=== PATIENT | female | born 1945 | race Caucasian/White ===

== ENCOUNTER 2017-09-07 16:13 | Emergency (ER) | payer OTHER, MEDICARE ==
[~2017-09-07] VITALS: Ht 170.2 cm; Wt 90.7 kg
[~2017-09-07 16:13] MED LIST: AMLODIPINE BESYL5 M1 PO; ATORVASTATIN CA20 M1 PO; BENICAR HCT 401 EAC1 PO; COZAAR100 M1 PO; OMEPRAZOLE40 M1 PO
--- NOTE | 2017-09-07 17:10 | RADIOLOGY REPORT ---
EXAMINATION: XR KNEE, LEFT CLINICAL INFORMATION: Left knee and left flank pain. COMPARISON: None TECHNIQUE: AP, lateral, and both oblique views of the left knee. FINDINGS: Minimal osteoarthritis of the left knee is characterized by tiny tricompartmental osteophytes as well as subchondral cystic changes in the patella. No fracture or malalignment. No joint effusion. Bones are osteopenic. Soft tissues are unremarkable. IMPRESSION: Minimal tricompartmental osteoarthritis. No acute osseous abnormalities.
--- NOTE | 2017-09-07 17:11 | RADIOLOGY REPORT ---
EXAMINATION: XR CHEST, 2 VIEWS CLINICAL INFORMATION: Left flank pain wrapping around the chest. COMPARISON: 10/08/2016 TECHNIQUE: PA and lateral views of the chest were obtained. FINDINGS: Lungs are clear. No consolidation, pneumothorax, or pleural effusion. Cardiac and mediastinal contours are normal. Pulmonary vasculature is unremarkable. Trachea is midline. Degenerative disc disease again seen in the thoracic spine. Osteophytes is again noted in the acromioclavicular and glenohumeral joints with loose bodies in the right superior subscapularis recess. Prominent subacromial spurs are present bilaterally. IMPRESSION: No acute pulmonary findings.
--- NOTE | 2017-09-07 17:14 | ED GENERAL ADULT ---
History of Present Illness General Chief Complaint: Lower Extremity Problems Stated Complaint: LFT LEG PAIN Source: patient Exam Limitations: no limitations Allergies Coded Allergies: NO KNOWN ALLERGIES (UNKNOWN 10/10/16) Reconcile Medications Amlodipine Besylate 5 MG TABLET 5 MG PO DAILY hypertension . Atorvastatin Calcium 20 MG TABLET 1 TAB PO DAILY CHOLESTEROL (Reported) Lidocaine HCl (Lidocaine HCl Viscous) 2 % SOLUTION 15 ML PO 4 TIMES/DAY PRN THROAT PAIN Losartan (Cozaar) 100 MG TABLET 100 MG PO DAILY hypertension . Omeprazole 40 MG CAPSULE.DR 1 CAP PO DAILY ACID REFLUX (Reported) Triage Note: PT STATES HER LEFT LEG HAD PAIN IN THE BACK OF HER KNEE WHILE GOING TO THE [facility]. Triage Nurses Notes Reviewed? yes Onset: Abrupt Duration: day(s): Timing: single episode today Injury Environment: home Severity: moderate, severe Severity Numbers: 8 No Modifying Factors: none Modifying Factors: Worsens With: movement. LMP (ages 10-50): post menopausal : No HPI: 71-year-old female past medical history of hyperlipidemia hypertension GERD and gastritis presents for evaluation of pain in her left popliteal fossa. This pain is been present for several days and getting worse. The pain is worse with movement. She has taken Aleve for this pain without much improvement. She also reports she has had intermittent pain in her epigastric area and right upper quadrant that wraps around to her right flank and right back. This pain is been present intermittently for about one week. No shortness of breath or chest pain. No hemoptysis no lower extremity edema no coughing. There was no trauma to the knee no redness no swelling. No recent surgery. She's never had a heart attack or some cardiac issues. (Kevyn Kirby) Vital Signs & Intake/Output Vital Signs & Intake/Output Vital Signs Date Time Temp Pulse Resp B/P B/P Pulse O2 O2 Flow FiO2 Mean Ox Delivery Rate 09/07 2024 98.0 62 18 148/74 99 Room Air 09/07 1820 97.6 88 18 152/78 98 Room Air 09/07 1624 97.4 110 18 164/92 97 Room Air ED Intake and Output 09/08 0000 09/07 1200 Intake Total Output Total Balance Patient 200 lb Weight Weight Reported by Patient Measurement Method (Jose Asif) Past History Travel History Traveled to [place] past 21 day No Medical History Any Pertinent Medical History? see below for history Cardiovascular: hypertension, hyperlipidemia Gastrointestinal: GERD, GASTRITIS Surgical History Surgical History: none Psychosocial History What is your primary language Estonian Tobacco Use: Never used ETOH Use: denies use Illicit Drug Use: denies illicit drug use Family History Family History, If Any: BROTHER FH: heart attack, Onset: 60+. Relation not specified for: *No pertinent family history Hx Contributory? No (Kevyn Kirby) Review of Systems Review of Systems Constitutional: Reports: no symptoms. EENTM: Reports: no symptoms. Respiratory: Reports: no symptoms. Cardiovascular: Reports: no symptoms. GI: Reports: see HPI, abdominal pain. Genitourinary: Reports: no symptoms. Musculoskeletal: Reports: see HPI, back pain, joint pain, muscle pain. Skin: Reports: no symptoms. Neurological/Psychological: Reports: no symptoms. Hematologic/Endocrine: Reports: no symptoms. Immunologic/Allergic: Reports: no symptoms. All Other Systems: Reviewed and Negative (Kevyn Kirby) Physical Exam Physical Exam General Appearance: well developed/nourished, no apparent distress, alert, awake Head: atraumatic, normal appearance Eyes: Bilateral: normal appearance, PERRL, EOMI. Ears, Nose, Throat: normal pharynx, normal ENT inspection, hearing grossly normal Neck: normal inspection, supple, full range of motion Respiratory: normal breath sounds, chest non-tender, no respiratory distress, lungs clear Cardiovascular: regular rate/rhythm, normal peripheral pulses Peripheral Pulses: 2+ radial (R), 2+ radial (L) Gastrointestinal: normal bowel sounds, soft, no organomegaly, tenderness ( EPIGASTRIC RUQ) Extremities: normal inspection, normal range of motion, no edema, THERE IS SWELLING AND PAIN TO PALPATION TO THE LEFT POPLITEAL FOSSA. NO ERYTEMA FULL ROM INTACTPATIENT IS ABLE TO WALK AND BEAR WEIGHT. nO [place] TENDERNESS Neurologic/Psych: no motor/sensory deficits, awake, alert, oriented x 3, normal gait Skin: intact, normal color, warm/dry Lymphatic: no anterior cervical derek Core Measures ACS in differential dx? No CVA/TIA Diagnosis: No Sepsis Present: No Sepsis Focused Exam Completed? No (Kevyn Kirby) Progress Differential Diagnoses I considered the following diagnoses in my evaluation of the patient: [ Pancreatitis, GERD, esophagitis, acute coronary syndrome, PE, aortic dissection] Diagnostic Imaging: Viewed by Me: Radiology Read, CT Scan. Discussed w/RAD: Radiology Read, CT Scan. Radiology Impression: PATIENT: NARA OLIVERA PRESENT AGE: 71 PATIENT ACCOUNT NO: [id number] : 47 LOCATION: [facility] ORDERING PHYSICIAN: Jose LOPEZ SERVICE DATE: 09/07/17 EXAM TYPE: RAD - XRY-CHEST XRAY, TWO VIEWS EXAMINATION: XR CHEST, 2 VIEWS CLINICAL INFORMATION: Left flank pain wrapping around the chest. COMPARISON: 10/08/2016 TECHNIQUE: PA and lateral views of the chest were obtained. FINDINGS: Lungs are clear. No consolidation, pneumothorax, or pleural effusion. Cardiac and mediastinal contours are normal. Pulmonary vasculature is unremarkable. Trachea is midline. Degenerative disc disease again seen in the thoracic spine. Osteophytes is again noted in the acromioclavicular and glenohumeral joints with loose bodies in the right superior subscapularis recess. Prominent subacromial spurs are present bilaterally. IMPRESSION: No acute pulmonary findings. DICTATED BY: Vargas Duarte MD DATE/TIME DICTATED:09/07/171706 SYNTHETIC CHEMIST:ELVIRA DATE/TIME TRANSCRIBED:09/07/171706 CONFIDENTIAL, DO NOT COPY WITHOUT APPROPRIATE AUTHORIZATION. <Electronically signed in Other Vendor System> SIGNED BY: Vargas Duarte MD 09/07/171710, PATIENT: NARA OLIVERA PRESENT AGE: 71 PATIENT ACCOUNT NO: [id number] : 47 LOCATION: [facility] ORDERING PHYSICIAN: Jose LOPEZ SERVICE DATE: 09/07/17 EXAM TYPE : RAD - XRY-KNEE COMPLETE LEFT EXAMINATION: XR KNEE, LEFT CLINICAL INFORMATION: Left knee and left flank pain. COMPARISON: None TECHNIQUE: AP, lateral, and both oblique views of the left knee. FINDINGS: Minimal osteoarthritis of the left knee is characterized by tiny tricompartmental osteophytes as well as subchondral cystic changes in the patella. No fracture or malalignment. No joint effusion. Bones are osteopenic. Soft tissues are unremarkable. IMPRESSION: Minimal tricompartmental osteoarthritis. No acute osseous abnormalities. DICTATED BY: Vargas Duarte MD DATE/TIME DICTATED:09/07/171704 SYNTHETIC CHEMIST:RAD.ANAYA DATE/TIME TRANSCRIBED:09/07/171704 CONFIDENTIAL, DO NOT COPY WITHOUT APPROPRIATE AUTHORIZATION. <Electronically signed in Other Vendor System> SIGNED BY: Vargas Duarte MD 09/07/171709, PATIENT: NARA OLIVERA PRESENT AGE: 71 PATIENT ACCOUNT NO: [id number] : 47 LOCATION: [facility] ORDERING PHYSICIAN: Kevyn LOPEZ SERVICE DATE: 09/07/17 EXAM TYPE: CAT - CT ABD & PELVIS W/O IV CONTRAS EXAMINATION: CT ABDOMEN AND PELVIS WITHOUT CONTRAST CLINICAL INFORMATION: Epigastric pain. Presumptive diagnosis of abdominal aorta aneurysm, cholecystitis and/or pancreatitis. COMPARISON: 09/06/2011 TECHNIQUE: Multidetector volumetric imaging was performed from the superior aspect of the liver through the pubic symphysis. Sagittal and coronal reformatted images were obtained on the technologist's workstation. DLP: 707 mGy-cm FINDINGS: LUNG BASES: Unremarkable. LIVER, GALLBLADDER, AND BILIARY TREE: Liver has normal size, contour and attenuation. Small, 0.5 cm benign nodular focus on the capsular surface of the right hepatic lobe is stable compared to 09/06/2011. Gallbladder is unremarkable. No evidence of radiopaque calculi or gallbladder wall edema. No intrahepatic or extrahepatic bile duct dilatation. PANCREAS: Mild to moderate atrophy and partial fatty replacement of pancreas. No focal pancreatic lesion, pancreatic ductal dilatation or peripancreatic edema. SPLEEN: Unremarkable. ADRENAL GLANDS: Unremarkable. KIDNEYS AND URETERS: Kidneys are normal in size. 1.1 cm cortical cyst of the upper pole the right kidney has increased in size; it has a simple appearance on this noncontrast exam. This cyst measured 0.4 cm on 09/06/2011. No suspicious renal lesion. No nephrolithiasis, hydronephrosis or perinephric edema. BLADDER: Unremarkable. GASTROINTESTINAL TRACT: A very small sliding-type hiatal hernia is suspected. Stomach is underdistended. Loops of bowel are normal in caliber. The appendix is normal. Multiple diverticula of the ascending colon without diverticulitis. No evidence of inflammation or obstruction along the gastrointestinal tract. No ascites or pneumoperitoneum. ABDOMINAL WALL: Unremarkable. LYMPH NODES: Normal. VASCULAR: Mild atherosclerosis of abdominal aorta without aneurysm. The infrarenal abdominal aorta measures up to 1.8 cm AP diameter. No retroperitoneal mass or hematoma. PELVIC VISCERA: The uterus and adnexa are grossly unremarkable. No pelvic mass or free fluid. OSSEOUS STRUCTURES: Multilevel disc degeneration and facet osteoarthritis of the lumbar spine. Mild, grade 1 anterolisthesis at L3-L4 and L4-L5; minimal degenerative retrolisthesis at L5-S1. Multifactorial, mild central canal stenosis at L3-L4 and L4-L5. There is at least moderate bilateral neural foraminal stenosis at L4- L5 and moderate to severe bilateral neural foraminal stenosis at L5-S1. No suspicious bone lesions. IMPRESSION: 1. No source of epigastric pain is identified. 2. No evidence of cholecystitis, pancreatitis or diverticulitis. 3. Mild atherosclerosis of the abdominal aorta without aneurysm. 4. Multilevel disc degeneration and facet arthropathy of the lumbar spine with grade 1 anterolisthesis at L3-L4 and L4-L5, and minimal retrolisthesis at L5-S1. DICTATED BY: Jose Nielson MD DATE/TIME DICTATED:09/07/171833 SYNTHETIC CHEMIST:ELVIRA DATE/TIME TRANSCRIBED:09/07/171833 CONFIDENTIAL, DO NOT COPY WITHOUT APPROPRIATE AUTHORIZATION. <Electronically signed in Other Vendor System> SIGNED BY: Jose Nielson MD 09/07/171848 Initial ED EKG: normal sinus rhythm, nonspecific ST T wave chg (LATERAL LEADS ) Prior EKG: unchanged Hand-Off Endorsed To: Jose Asif Endorsed Time: 1925 Pending: EKG, labs (Kevyn Kirby) Plan of Care: Orders Procedure Date/time Status TROPONIN LEVEL 09/08 2019 Complete EKG 09/08 2019 Active TROPONIN LEVEL 09/08 1627 Complete D-DIMER 09/08 1627 Complete COMPREHENSIVE METABOLIC PANEL 09/08 1627 Complete CBC WITHOUT DIFFERENTIAL 09/08 1627 Complete EKG 09/07 162 Active Laboratory Tests 09/07/172005: Troponin I < 0.01 09/07/179: Anion Gap 12, Estimated GFR > 60, BUN/Creatinine Ratio 18.9, Glucose 128 H, Calcium 10.5 H, Total Bilirubin 0.8, AST 38 H, ALT 44, Alkaline Phosphatase 89 , Troponin I < 0.01, Total Protein 7.1, Albumin 4.3, Globulin 2.8, Albumin/ Globulin Ratio 1.5, D-Dimer High Sensitivty < 200, CBC w Diff NO MAN DIFF REQ, RBC 4.98, MCV 87.7, MCH 30.1, MCHC 34.3, RDW 12.3, MPV 7.6, Gran % 64.5, Lymphocytes % 27.8, Monocytes % 6.3, Eosinophils % 0.8, Basophils % 0.6, Absolute Granulocytes 4.7, Absolute Lymphocytes 2.0, Absolute Monocytes 0.5, Absolute Eosinophils 0.1, Absolute Basophils 0 Patient is here with multiple complaints including pain in her left popliteal fossa and epigastric right upper quadrant pain that radiates around to the flank and back. She has no chest pain or shortness of breath. There is mild swelling and tenderness to palpation in the popliteal fossa. There is no calf swelling or tenderness no DVT risk factors. Labs chest x-ray knee x-ray EKG ordered. Patient medicated with a GI cocktail. Patient reports complete resolution of her pain after GI cocktail. Labs are not showing any acute findings including a negative troponin and d-dimer. Chest x- ray the x-ray does not show acute findings. There is tricompartmental arthritis present in the knee. A repeat EKG and troponin will be obtained. Patient was given a outpatient slip completed ultrasounds also be referred to orthopedics. Patient signed out to Jose Potter pending repeat EKG and troponin. She'll be given a prescription for a GI cocktail continue at home. Case discussed with Dr. Meza he agrees. (Kevyn Kirby) Repeat EKG: unchanged (Jose Asif) Departure Departure Disposition: HOME OR SELF CARE Condition: Stable Clinical Impression Primary Impression: Epigastric pain Referrals: Corona GONZALEZ,Nitin Sierra (PCP/Family) Additional Instructions: Continue omeprazole daily. Viscous Lidocaine and Maalox as needed for abdominal pain. Follow-up with your primary care doctor monitor symptoms return with any concerns. Tylenol as needed for knee pain. Follow-up with your orthopedic doctor. Complete ultrasound tomorrow. Monitor symptoms return with any concerns. Departure Forms: Customer Survey General Discharge Information Prescriptions: Current Visit Scripts Lidocaine HCl (Lidocaine HCl Viscous) 15 ML PO 4 TIMES/DAY PRN THROAT PAIN #100 ML (Kevyn Kirby) PA/JEEP MECHANIC Co-Sign Statement Statement: ED Attending supervision documentation- [X] I saw and evaluated the patient. I have also reviewed all the pertinent lab results and diagnostic results. I agree with the findings and the plan of care as documented in the PA's/JEEP MECHANIC's documentation. [X] I have reviewed the ED Record and agree with the PA's/JEEP MECHANIC's documentation. [] Additions or exceptions (if any) to the PAs/JEEP MECHANIC's note and plan are summarized below: [] (Derrick GONZALEZ,Juan Carlos Clarke) Critical Care Note Critical Care Note Critical Care Time: non-applicable (Kevyn Kirby)
[2017-09-07 17:30] LABS: ABSOLUTE BASOPHIL COUNT 0 /CUMM (0.0-0.2); ABSOLUTE EOSINOPHIL COUNT 0.1 /CUMM (0.0-0.7); ABSOLUTE GRANULOCYTE CT 4.7 /CUMM (1.4-6.5); ABSOLUTE MONOCYTE COUNT 0.5 /CUMM (0.10-0.60); BASOPHIL % 0.6 % (0.0-2.0); EOSINOPHIL % 0.8 % (0-5); GRANULOCYTE % 64.5 % (42.2-75.2); HEMATOCRIT 43.7 % (37-47); MEAN CORPUSCULAR HGB 30.1 PG (27.0-31.0); MEAN CORPUSCULAR HGB CONC 34.3 G/DL (33.0-37.0); MEAN CORPUSCULAR VOLUME 87.7 FL (81.0-99.0); MEAN PLATELET VOLUME 7.6 FL (7.4-10.4); PLATELET COUNT 264 /CUMM (130-400); RBC DISTRIBUTION WIDTH 12.3 % (11.5-14.5); RED BLOOD CELL CT 4.98 /CUMM (4.20-5.40); WHITE BLOOD CELL COUNT 7.2 /CUMM (4.8-10.8)
--- NOTE | 2017-09-07 18:49 | CT SCAN REPORT ---
EXAMINATION: CT ABDOMEN AND PELVIS WITHOUT CONTRAST CLINICAL INFORMATION: Epigastric pain. Presumptive diagnosis of abdominal aorta aneurysm, cholecystitis and/or pancreatitis. COMPARISON: 09/06/2011 TECHNIQUE: Multidetector volumetric imaging was performed from the superior aspect of the liver through the pubic symphysis. Sagittal and coronal reformatted images were obtained on the technologist's workstation. DLP: 707 mGy-cm FINDINGS: LUNG BASES: Unremarkable. LIVER, GALLBLADDER, AND BILIARY TREE: Liver has normal size, contour and attenuation. Small, 0.5 cm benign nodular focus on the capsular surface of the right hepatic lobe is stable compared to 09/06/2011. Gallbladder is unremarkable. No evidence of radiopaque calculi or gallbladder wall edema. No intrahepatic or extrahepatic bile duct dilatation. PANCREAS: Mild to moderate atrophy and partial fatty replacement of pancreas. No focal pancreatic lesion, pancreatic ductal dilatation or peripancreatic edema. SPLEEN: Unremarkable. ADRENAL GLANDS: Unremarkable. KIDNEYS AND URETERS: Kidneys are normal in size. 1.1 cm cortical cyst of the upper pole the right kidney has increased in size; it has a simple appearance on this noncontrast exam. This cyst measured 0.4 cm on 09/06/2011. No suspicious renal lesion. No nephrolithiasis, hydronephrosis or perinephric edema. BLADDER: Unremarkable. GASTROINTESTINAL TRACT: A very small sliding-type hiatal hernia is suspected. Stomach is underdistended. Loops of bowel are normal in caliber. The appendix is normal. Multiple diverticula of the ascending colon without diverticulitis. No evidence of inflammation or obstruction along the gastrointestinal tract. No ascites or pneumoperitoneum. ABDOMINAL WALL: Unremarkable. LYMPH NODES: Normal. VASCULAR: Mild atherosclerosis of abdominal aorta without aneurysm. The infrarenal abdominal aorta measures up to 1.8 cm AP diameter. No retroperitoneal mass or hematoma. PELVIC VISCERA: The uterus and adnexa are grossly unremarkable. No pelvic mass or free fluid. OSSEOUS STRUCTURES: Multilevel disc degeneration and facet osteoarthritis of the lumbar spine. Mild, grade 1 anterolisthesis at L3-L4 and L4-L5; minimal degenerative retrolisthesis at L5-S1. Multifactorial, mild central canal stenosis at L3-L4 and L4-L5. There is at least moderate bilateral neural foraminal stenosis at L4-L5 and moderate to severe bilateral neural foraminal stenosis at L5-S1. No suspicious bone lesions. IMPRESSION: 1. No source of epigastric pain is identified. 2. No evidence of cholecystitis, pancreatitis or diverticulitis. 3. Mild atherosclerosis of the abdominal aorta without aneurysm. 4. Multilevel disc degeneration and facet arthropathy of the lumbar spine with grade 1 anterolisthesis at L3-L4 and L4-L5, and minimal retrolisthesis at L5-S1.
[2017-09-07] MEDS ORDERED: LIDOCAINE HCL V15 ML PO (19:12)
[2017-09-07 20:25] VITALS: BP 148/74
== END 2017-09-07 20:52 ==
LOC: ERH 16:13
PROVIDERS: Physician Assistant Medical
DX: R10.13 Epigastric pain (principal); R10.11 Right upper quadrant pain; M79.605 Pain in left leg
CPT/HCPCS: 71046; 73562-LT; 74176; 93005; 93010